=== PATIENT | male | born 1995 | race Caucasian/White ===

== ENCOUNTER 2016-12-22 15:55 | Emergency (ER) | payer SELFPAY ==
[~2016-12-22] VITALS: Ht 177.8 cm; Wt 81.6 kg
[2016-12-22 15:55] VITALS: BP 131/84
== END 2016-12-22 16:30 | disposition home or self-care (01) ==
LOC: ER 16:01
DX: J03.90 Acute tonsillitis, unspecified (principal); F17.200 Nicotine dependence, unspecified, uncomplicated
CPT/HCPCS: 99283; A4606; Z7610